=== PATIENT | female | born 1995 | race Caucasian/White ===

== ENCOUNTER 2024-08-25 16:23 | Emergency (ER) | payer BC ==
[~2024-08-25] VITALS: Ht 139.7 cm; Wt 48.5 kg
[2024-08-25] MEDS: IV NORMAL SALINE 1000 ML BAG IV ONE (16:35)
[2024-08-25 17:07] LABS: BASOPHILS % (AUTO) 0.8 % (0.0-2.0); EOSINOPHILS # (AUTO) 0.1 K/uL (0.0-0.7); EOSINOPHILS % (AUTO) 2.1 % (0.0-7.0); HEMATOCRIT 37.3 % (31.2-41.9); HEMOGLOBIN 12.2 g/dL (10.9-14.3); LYMPHOCYTES # (AUTO) 1.9 K/uL (0.8-4.8); LYMPHOCYTES % (AUTO) 35.1 % (20.5-51.5); MEAN CORPUSCULAR HEMOGLOBIN 26.6 uug (24.7-32.8); MEAN CORPUSCULAR HGB CONC 33 g/dL (32.3-35.6); MEAN CORPUSCULAR VOLUME 81.5 fL (75.5-95.3); MONOCYTES # (AUTO) 0.4 K/uL (0.1-1.30); MONOCYTES % (AUTO) 8.5 % (0.0-11.0); NEUTROPHILS # (AUTO) 2.8 K/uL (1.8-8.9); NEUTROPHILS % (AUTO) 53.5 % (38.5-71.5); PLATELET COUNT (AUTO) 234 K/uL (179-408); RED BLOOD CELL COUNT(AUTO) 4.58 MIL/uL (3.63-4.92); RED CELL DISTRIBUTION WIDTH 14.6 % (12.3-17.7); WHITE BLOOD COUNT (AUTO) 5.3 K/uL (3.8-11.8)
[2024-08-25 17:15] LABS: CALCIUM 8.7 mg/dL (8.5-10.1); CARBON DIOXIDE 32 mmol/L (21-32); CHLORIDE 106 mmol/L (98-107); GLUCOSE 104 mg/dL (74-106); POTASSIUM 4.7 mmol/L (3.5-5.1); SODIUM SERUM 143 mmol/L (136-145); UREA NITROGEN, BLOOD 14 mg/dL (7-18)
[2024-08-25 17:21] LABS: ALANINE AMINOTRANSFERASE 8 U/L (14-59); ALBUMIN 3.1 g/dL (3.4-5.0); ALKALINE PHOSPHATASE 61 U/L (50-136); ASPARTATE AMINOTRANSFERASE < 5 U/L (15-37); BILIRUBIN,DIRECT 0.1 mg/dL (0.0-0.2); BILIRUBIN,TOTAL 0.3 mg/dL (0.2-1.0); TOTAL PROTEIN, SERUM 6.7 g/dL (6.4-8.2)
[2024-08-25] MEDS ORDERED: BUPR8TAB4 SL (17:50)
[2024-08-25] MEDS ORDERED: GABA-532 PO (17:50)
[2024-08-25] MEDS: IV LACTATED RINGERS SOLUTION 1,000 ML BAG IV ONE (17:55)
[2024-08-25] MEDS ORDERED: ONDA4TAB11 PO (18:07)
[2024-08-25] MEDS ORDERED: DIPH1TAB PO (18:07)
[2024-08-25] MEDS ORDERED: LOPE2CAP40 PO (18:08)
[2024-08-25] MEDS ORDERED: LORAZEPAM 2 MG/1 ML VIAL ONE (18:28)
[2024-08-25] MEDS ORDERED: DEXAMETHASONE SOD PHOSPHATE 4 MG INJ ONE (18:32)
[2024-08-25] MEDS: LORAZEPAM 2 MG/1 ML VIAL IV ONE (18:33)
[2024-08-25] MEDS: DEXAMETHASONE SOD PHOSPHATE 4 MG INJ IM ONE (18:33)
[2024-08-25 19:06] VITALS: BP 118/63; O2SAT 100
== END 2024-08-25 18:50 | disposition home or self-care (01) ==
LOC: ER 16:28
DX: I95.9 Hypotension, unspecified (principal); R55 Syncope and collapse; E86.0 Dehydration; Z79.899 Other long term (current) drug therapy; Z88.2 Allergy status to sulfonamides
CPT/HCPCS: 99284; 96374; 96361 ×2; 80076; 80048; 85025; 36415; 93005; 96372; J1100; J2060; J7120; J7040; A4606; A4663